=== PATIENT | male | born 1995 | race Caucasian/White ===

== ENCOUNTER 2017-05-27 13:22 | Emergency (ER) | payer OTHER ==
[~2017-05-27] VITALS: Ht 180.3 cm; Wt 140.2 kg
[~2017-05-27 13:22] MED LIST: BACO TOP; HIBICLENS118 ML TOP; MOTRIN800 MG PO
[2017-05-27 16:35] LABS: BASOPHIL % 0.4 % (0-2); PLATELET COUNT 377 x10^3mcL (130-400); RED CELL DISTRIBUTION WIDTH 13.4 % (11.5-14.5)
[2017-05-27 16:43] LABS: UA SPECIFIC GRAVITY 1.025 (1.005-1.035); microscopic required? YES; urine erythrocyte NEGATIVE (NEGATIVE)
[2017-05-27 17:11] LABS: CALCIUM 9.4 mg/dL (8.5-10.1); CARBON DIOXIDE 28.9 mmol/L (21-32); CHLORIDE SERUM 103 mmol/L (98-107); CREATININE SERUM 0.7 mg/dL (0.7-1.3); GFR1 > 60 mL/min; GLUCOSE SERUM 80 mg/dL (74-106); SODIUM SERUM 138 mmol/L (136-145)
[2017-05-27 17:15] LABS: ALBUMIN 3.6 g/dL (3.4-5.0); ALKALINE PHOSPHATASE 85 U/L (46-116); ALT/SGPT 47 U/L (16-63); AST/SGOT 22 U/L (15-37); BILIRUBIN TOTAL 0.52 mg/dL (0.20-1.00); LIPASE 99 IU/L (73-393); TOTAL PROTEIN, SERUM 8.1 g/dL (6.4-8.2)
[2017-05-27 18:41] VITALS: BP 125/76
== END 2017-05-27 18:41 | disposition home or self-care (01) ==
LOC: ED 13:22
PROVIDERS: Emergency Medicine
DX: R10.11 Right upper quadrant pain (principal); R11.0 Nausea
CPT/HCPCS: 36415; Q0092

== ENCOUNTER 2017-08-24 12:59 | Emergency (ER) | payer OTHER ==
[~2017-08-24] VITALS: Ht 177.8 cm; Wt 142.0 kg
[2017-08-24 13:08] VITALS: Ht 177.8 cm; Wt 142.0 kg
[2017-08-24 14:26] VITALS: BP 133/74
== END 2017-08-24 14:17 | disposition home or self-care (01) ==
LOC: ED 12:59
DX: B34.9 Viral infection, unspecified (principal)
CPT/HCPCS: J7613; J7644

== ENCOUNTER 2017-09-03 15:00 | Emergency (ER) | payer OTHER ==
[~2017-09-03] VITALS: Ht 177.8 cm; Wt 140.6 kg
[2017-09-03 15:18] VITALS: Ht 177.8 cm; Wt 140.6 kg
[2017-09-03 17:57] VITALS: BP 129/77
== END 2017-09-03 17:57 | disposition home or self-care (01) ==
LOC: ED 15:00
DX: R42 Dizziness and giddiness (principal); R11.2 Nausea with vomiting, unspecified; R51 Headache
CPT/HCPCS: J8597; Q0162